=== PATIENT | female | born 1950 | race Caucasian/White ===

== ENCOUNTER 2016-09-21 14:29 | Outpatient (RCR) | payer MEDICARE, BC ==
[2016-09-21] VITALS (8 sets, daily range): BP systolic 106–130; BP diastolic 56–96; PULSE 84–99; TEMP 98–98.6
[~2016-09-21 14:29] MED LIST: ACIDOPHILIS PO; ACIDOPHILUS PO; ASPIRIN 81M81 MG/TA2 PO; BENICAR HCT 12.1 TAB PO; BONIVA150 MG PO; CALCIUM 600 PLU1 TAB PO; CALCIUM 600 W/V1 TAB PO; K-DUR20 MEQ PO; MAREPA1200 MG; PRILOSEC 20MG20 MG PO; PROVENTIL0.09 MG/A1 IH; RT SPIRIVA18 MCG IH; SINGULAIR 110 MG/TAB PO; TIAZAC360 MG PO; ZANTAC 150MG T150 MG PO; ZOCOR 20MG20 MG PO; ZYRTEC 10MG10 MG PO
[2017-02-23] MEDS ORDERED: MELAT3MGTAB PO (09:41)
[2017-02-23] MEDS ORDERED: CEFTIN500 MG PO (09:41)
[2017-02-23] MEDS ORDERED: CIPRO 500MG TA500 MG PO (10:23)
== END 2016-09-21 22:00 | disposition still patient (30) ==
LOC: EUO 14:29
DX: C25.0 Malignant neoplasm of head of pancreas (principal)
CPT/HCPCS: J7050; P9016

== ENCOUNTER 2016-10-11 12:30 | Outpatient (RCR) | payer MEDICARE, BC ==
[~2016-10-11] VITALS: Ht 147.3 cm; Wt 43.6 kg
[2016-10-11] VITALS (7 sets, daily range): BP systolic 107–134; BP diastolic 48–107; PULSE 103–115; TEMP 98.2–98.9
[2017-02-23] MEDS ORDERED: MELAT3MGTAB PO (09:41)
[2017-02-23] MEDS ORDERED: CEFTIN500 MG PO (09:41)
[2017-02-23] MEDS ORDERED: CIPRO 500MG TA500 MG PO (10:23)
== END 2016-10-11 18:39 | disposition home or self-care (01) ==
LOC: EUO 12:30
DX: C25.0 Malignant neoplasm of head of pancreas (principal)
CPT/HCPCS: J1644; J7050; P9016

== ENCOUNTER 2016-10-26 13:34 | Outpatient (RCR) | payer MEDICARE, BC ==
[2016-10-27 09:59] VITALS: BP 126/66; PULSE 84; TEMP 98.6
[2016-10-27 11:17] VITALS: BP 118/61; PULSE 79; TEMP 98.1
[2016-10-27 11:29] VITALS: BP 108/59; PULSE 80; TEMP 98
[2016-10-27 13:00] VITALS: BP 116/62; PULSE 75; TEMP 97.9
[2016-10-27 14:01] VITALS: BP 115/63; PULSE 76; TEMP 97.9
[2017-02-23] MEDS ORDERED: MELAT3MGTAB PO (09:41)
[2017-02-23] MEDS ORDERED: CEFTIN500 MG PO (09:41)
[2017-02-23] MEDS ORDERED: CIPRO 500MG TA500 MG PO (10:23)
== END 2016-10-27 19:25 ==
LOC: EUO 13:34 → MEDICAL 10-27 09:38 → EUO 10-27 10:00
DX: C25.0 Malignant neoplasm of head of pancreas (principal)
CPT/HCPCS: OP; J7050; P9016

== ENCOUNTER 2016-11-22 14:42 | Outpatient (RCR) | payer MEDICARE, BC ==
[2016-11-22] VITALS (9 sets, daily range): BP systolic 110–135; BP diastolic 54–68; PULSE 76–95; TEMP 98–98.5
[2017-02-23] MEDS ORDERED: MELAT3MGTAB PO (09:41)
[2017-02-23] MEDS ORDERED: CEFTIN500 MG PO (09:41)
[2017-02-23] MEDS ORDERED: CIPRO 500MG TA500 MG PO (10:23)
== END 2016-11-23 13:39 | disposition home or self-care (01) ==
LOC: EUO 14:42
DX: C25.9 Malignant neoplasm of pancreas, unspecified (principal)
CPT/HCPCS: J1644; J7050; P9016

== ENCOUNTER 2017-02-08 12:00 | Outpatient (RCR) | payer MEDICARE, BC ==
[2016-12-21] VITALS (9 sets, daily range): BP systolic 106–133; BP diastolic 58–82; PULSE 73–90; TEMP 97.8–99.5
[2017-01-18] VITALS (9 sets, daily range): BP systolic 103–128; BP diastolic 62–91; PULSE 79–98; TEMP 98–98.8
[2017-02-08 12:57] VITALS: BP 121/69; PULSE 102
[2017-02-08 13:58] VITALS: BP 117/60; PULSE 96; TEMP 98.2
[2017-02-08 14:13] VITALS: BP 113/63; PULSE 99; TEMP 98.2
[2017-02-08 14:43] VITALS: BP 115/56; PULSE 99; TEMP 98.9
[2017-02-08 15:45] VITALS: BP 122/67; PULSE 94; TEMP 97.8
[2017-02-23] MEDS ORDERED: MELAT3MGTAB PO (09:41)
[2017-02-23] MEDS ORDERED: CEFTIN500 MG PO (09:41)
[2017-02-23] MEDS ORDERED: CIPRO 500MG TA500 MG PO (10:23)
== END 2017-02-08 16:20 | disposition home or self-care (01) ==
LOC: EUO 12:00
DX: C25.9 Malignant neoplasm of pancreas, unspecified (principal); Z79.899 Other long term (current) drug therapy
CPT/HCPCS: J1644; J7050; P9016

== ENCOUNTER 2017-02-15 11:37 | Outpatient (RCR) | payer MEDICARE, BC ==
[~2017-02-15] VITALS: Ht 147.3 cm; Wt 49.7 kg
[2017-02-15] VITALS (10 sets, daily range): BP systolic 91–121; BP diastolic 49–84; PULSE 84–98; TEMP 98.1–100.7
[2017-02-15] MEDS ORDERED: SENOKOT8.6 MG PO (12:17)
[2017-02-23] MEDS ORDERED: MELAT3MGTAB PO (09:41)
[2017-02-23] MEDS ORDERED: CEFTIN500 MG PO (09:41)
[2017-02-23] MEDS ORDERED: CIPRO 500MG TA500 MG PO (10:23)
== END 2017-02-15 17:10 ==
LOC: EUO 11:37
DX: C25.0 Malignant neoplasm of head of pancreas (principal); Z79.899 Other long term (current) drug therapy
CPT/HCPCS: J1644; J7050; P9016

== ENCOUNTER → 2017-04-02 | Outpatient (CLI) | payer MEDICARE, BC ==
[~2017-04-02] MED LIST changes: +CEFTIN500 MG PO; +CIPRO 500MG TA500 MG PO; +MELAT3MGTAB PO; +SENOKOT8.6 MG PO
== END ==
LOC: COL.RAD 07:10
DX: K75.0 Abscess of liver (principal); K86.89 Other specified diseases of pancreas; K31.89 Other diseases of stomach and duodenum; Z85.07 Personal history of malignant neoplasm of pancreas; Z98.890 Other specified postprocedural states
CPT/HCPCS: Q9967

== ENCOUNTER 2017-04-19 07:47 | Outpatient (RCR) | payer MEDICARE, BC ==
[2017-04-19] VITALS (9 sets, daily range): BP systolic 108–143; BP diastolic 59–80; PULSE 75–81; TEMP 98.2–98.9
== END 2017-04-19 15:33 | disposition home or self-care (01) ==
LOC: EUO 07:47 → EDSTATUS 08:00 → EUO 08:00
DX: C25.0 Malignant neoplasm of head of pancreas (principal)
CPT/HCPCS: J1644; J7050; P9016